=== PATIENT | male | born 1980 ===

== ENCOUNTER 2016-08-20 01:31 | Emergency (ER) | payer MEDICARE, OTHER ==
--- NOTE | ~2016-08-20 | CT52 ---
[facility] A Service of [facility] RADIOLOGY TEXT RESULTS PATIENT: MERCY GIMENEZ LOCATION: [facility] : 81 UNIT #: [id number] AGE: [address]: Osmany Velasco MD SEX: M ORDER DR: [id number] [facility] [address] [place], [place] [address] [id number] E MR#: [id number] Acc #: [id number] NAME: HUSSAIN HERNANDEZ : SEX: M STUDY DATE/TIME: 08/20/2016 1:34 UNIT: [facility] ROOM: STUDY DESCRIPTION: CT Cervical Spine Wo Cont Attending Physician: Osmany Velasco M.D. Ordering Physician: Osmany Velasco M.D. Primary Care Physician: Primary Care Physician No MEDICAL IMAGING REPORT This report is preliminary unless electronic signature is present EXAM CT cervical spine without contrast, 08/20/2016 INDICATION Patient found down. Unresponsive today. PROCEDURE Unenhanced CT cervical spine. This CT exam was performed with one or more of the following radiation dose reduction techniques: automatic exposure control, adjustment of mA and/or kV according to patient size, and iterative reconstruction. COMPARISON None. FINDINGS Cervical bodies have normal height, alignment is preserved. Degenerative change with posterior osteophyte at C5-C6. The craniocervical junction and the dens are intact. No aggressive-appearing bone lesion. No acute fracture. No critical central canal narrowing. IMPRESSION No acute findings. Dictated by... Girish Young M.D. THIS IS AN ELECTRONICALLY VERIFIED REPORT Girish Young M.D. at 08/20/2016 10:14 PM EED/ljd [facility] A Service [facility] RADIOLOGY TEXT RESULTS PATIENT: MERCY GIMENEZ LOCATION: [facility] : 82 UNIT #: [id number] AGE: [address]: Osmany Velasco MD SEX: M ORDER DR: TD: 08/20/2016 04:27 JOB #: [id number] MEDICAL IMAGING REPORT Page 1 of 1 COPY
--- NOTE | ~2016-08-20 | EKG ---
PATIENT: MERCY GIMENEZ UNIT #: [id number] Ventricular Rate: 105 BPM Atrial Rate: 105 BPM P-R Interval: 166 ms QRS Duration: 80 ms Q-T Interval: 340 ms QTC Calculation(Bezet): 449 ms P Clubb: 56 degrees Calculated R Clubb: 54 degrees Calculated T Clubb: 44 degrees Diagnosis Line: Sinus tachycardia Diagnosis Line: Moderate voltage criteria for LVH, may be normal Diagnosis Line: variant Diagnosis Line: Borderline ECG Diagnosis Line: No previous ECGs available Diagnosis Line: Confirmed by CARTER HARDING MD ([id number]) on 08/20/2016 Diagnosis Line: 11:27:59 PM INTERPRETING MD: MEAGHAN JUÁREZ
--- NOTE | ~2016-08-20 | CT71 ---
[facility] A Service of [facility] RADIOLOGY TEXT RESULTS PATIENT: MERCY GIMENEZ LOCATION: [facility] : 81 UNIT #: [id number] AGE: [address]: Osmany Velasco MD SEX: M ORDER DR: [id number] [facility] [address] [place], [place] [address] [id number] E MR#: [id number] Acc #: [id number] NAME: HUSSAIN HERNANDEZ : SEX: M STUDY DATE/TIME: 08/20/2016 1:25 UNIT: [facility] ROOM: STUDY DESCRIPTION: CT Head Wo Contrast Attending Physician: Osmany Velasco M.D. Ordering Physician: Osmany Velasco M.D. Primary Care Physician: Primary Care Physician No MEDICAL IMAGING REPORT This report is preliminary unless electronic signature is present EXAM CT head without contrast, 08/20/2016 INDICATION Unresponsive, patient found down today. PROCEDURE Unenhanced CT head. This CT exam was performed with one or more of the following radiation dose reduction techniques: automatic exposure control, adjustment of mA and/or kV according to patient size, and iterative reconstruction. COMPARISON None. FINDINGS No acute hemorrhage, abnormal mass effect, extraaxial fluid collection or hydrocephalus. No depressed calvarial fracture. Paranasal sinuses predominately clear. IMPRESSION No acute intracranial findings. Dictated by... Girish Young M.D. THIS IS AN ELECTRONICALLY VERIFIED REPORT Girish Young M.D. at 08/20/2016 10:14 PM EED/ljd [facility] A Service of [facility] RADIOLOGY TEXT RESULTS PATIENT: MERCY GIMENEZ LOCATION: [facility] : 81 UNIT #: [id number] AGE: [address]: Osmany Velasco MD SEX: M ORDER DR: TD: 08/20/2016 04:25 JOB #: [id number] MEDICAL IMAGING REPORT Page 1 of 1 COPY
--- NOTE | ~2016-08-20 | CR72 ---
[facility] A Service of [facility] & [facility] RADIOLOGY TEXT RESULTS PATIENT: MERCY GIMENEZ LOCATION: [facility] : 81 UNIT #: [id number] AGE: [address]: Osmany Velasco MD SEX: M ORDER DR: [id number] [facility] [address] [place], [place] [address] [id number] E MR#: [id number] Acc #: [id number] NAME: HUSSAIN HERNANDEZ : SEX: M STUDY DATE/TIME: 08/20/2016 1:15 UNIT: [facility] ROOM: STUDY DESCRIPTION: CR Chest Single View Portable Attending Physician: Osmany Velasco M.D. Ordering Physician: Osmany Velasco M.D. Primary Care Physician: Primary Care Physician No MEDICAL IMAGING REPORT This report is preliminary unless electronic signature is present EXAM Portable chest, 08/20/2016 INDICATION Unresponsive patient today. PROCEDURE Frontal view chest. COMPARISON None. FINDINGS Heart size upper limits of normal. No dense consolidation, effusion or pneumothorax. IMPRESSION No active process. Dictated by... Girish Young M.D. THIS IS AN ELECTRONICALLY VERIFIED REPORT Girish Young M.D. at 08/20/2016 10:14 PM SATISH/mike TD: 08/20/2016 04:21 JOB #: [id number] MEDICAL IMAGING REPORT Page 1 of 1 COPY
[2016-08-20 02:56] LABS: BASOPHIL# 0.1 X10e3 (0-0.3); EOSINOPHIL# 0.1 X10e3 (0-0.7); EOSINOPHIL% 0.7 % (0.0-7.0); HEMATOCRIT 46.7 % (38.0-50.0); HEMOGLOBIN 15.3 gm/dL (13.0-16.0); LYMPHOCYTE% 34.4 % (17.0-45.0); MEAN CELL VOLUME 85.6 FL (83-96); MEAN CORPUSCULAR HGB CONC 32.7 g/dL (30-36); MEAN PLATELET VOLUME 8.4 FL (6.5-11.5); MONOCYTE# 0.4 X10e3 (0-1.0); MONOCYTE% 4.5 % (3.0-12.0); NEUTROPHIL# 5.2 X10e3 (1.5-7.1); NEUTROPHIL% 59.4 % (40-75); PLATELET COUNT 268 X10e3 (140-420); RED BLOOD COUNT 5.46 X10e (3.90-5.60); RED CELL DISTRIBUTION WIDTH 13.6 % (11.0-15.5); WHITE BLOOD COUNT 8.7 X10e3 (4.0-10.5)
[2016-08-20 02:58] LABS: DIFF IND NO
[2016-08-20 03:16] LABS: ACETAMINOPHEN <10 ug/mL; ALKALINE PHOSPHATASE 60 U/L (32-92); ALT (SGPT) 24 U/L (10-40); AST (SGOT) 29 U/L (10-42); BILIRUBIN, DIRECT <0.1 mg/dL (0.0-0.2); BILIRUBIN,INDIRECT 0.3 mg/dL (0.0-0.9); BILIRUBIN,TOTAL 0.4 mg/dL (0.2-2.0); BLOOD UREA NITROGEN 7 mg/dL (9-23); BUN/CREATININE RATIO 7.77; CALCIUM SERUM 8.9 mg/dL (8.4-10.2); CARBON DIOXIDE 23 mmol/L (22-31); CHLORIDE 106 mmol/L (100-111); CREATININE SERUM 0.9 mg/dL (0.6-1.4); GLUCOSE FASTING 120 mg/dL (70-110); POTASSIUM 3.4 mmol/L (3.5-5.1); PROTEIN TOTAL SERUM 8.7 g/dL (6.0-8.3); SALICYLATE <4.0 mg/dL; SODIUM 141 mmol/L (135-145)
[2016-08-20 03:17] LABS: ALCOHOL BLOOD 365 mg/dL (0)
== END 2016-08-20 05:45 | disposition home or self-care (01) ==
LOC: CED 01:31
PROVIDERS: Emergency Medicine
DX: F10.129 Alcohol abuse with intoxication, unspecified (principal); Y90.8 Blood alcohol level of 240 mg/100 ml or more
CPT/HCPCS: 36415; 70450; 71010; 72125; 80048; 80076; 82140; 82947; 85025; 93005; 99284; G0480